=== PATIENT | female | born 1945 | race African-American/Black ===

== ENCOUNTER 2018-05-07 00:56 | Emergency (ER) | payer OTHER, BC ==
[2018-05-07 01:25] VITALS: BP 160/81; PULSE 85; TEMP 98.3; BMI 35.9
[2018-05-07] MEDS ORDERED: FAMOTIDINE 20 MG/50 ML IVPB 20 MG/50 ML MG IVPB ONE ×2 (03:01→03:09)
[2018-05-07] MEDS ORDERED: methylPREDNISolone NA SUCC 125 MG/2 ML VIAL IVPB ONE (03:01)
--- NOTE | 2018-05-07 03:01 | PDOC ---
History of Present Illness - General Chief Complaint: Allergic Reaction Stated Complaint: ALLERGIC REACTION Time Seen by Provider: 05/07/18 02:20 History Source: Patient Exam Limitations: No Limitations - History of Present Illness Initial Comments: 05/07/18 02:59 Best Contact: PCP:juana name Pmhx: NIDDM, HTN Pshx: 2013: R THR, 2 lumbar laminectomy, spinal stimulator Allergies: Asa/Palpitations, IV dye swelling FH:0 Social Hx: Cigarettes/ 0 Alcohol/ 0 Drugs/0 Past History - Past Medical History Allergies/Adverse Reactions: Allergies Allergy/AdvReac Type Severity Reaction Status Date / Time iodine Allergy Severe Swelling Verified 10/25/17 14:11 aspirin AdvReac palpitation Verified 10/25/17 14:11 s contrast Allergy Severe Swelling Uncoded 10/25/17 14:11 Home Medications: Ambulatory Orders Amlodipine Besylate [Norvasc -] 5 mg PO DAILY 10/25/17 Brimonidine Tartrate/Timolol [Combigan 0.2%-0.5% Eye Drops] 5 ml OP ASDIR Carvedilol [Coreg -] 6.25 mg PO BID 10/25/17 Dexlansoprazole [Dexilant] 60 mg PO DAILY 10/25/17 Furosemide [Lasix] 20 mg PO DAILY 10/25/17 Gabapentin [Gralise] 300 mg PO BID 10/25/17 Metformin HCl [Metformin HCl ER] 500 mg PO BID 10/25/17 Multivit-Min/Iron/Folic/Lutein [Centrum Silver Women Tablet] 1 each PO HS Sitagliptin Phosphate [Januvia] 50 mg PO DAILY 10/25/17 Tramadol HCl [Ultram] 50 mg PO PRN PRN 10/25/17 Valsartan/Hydrochlorothiazide [Valsartan-Hctz 320-12.5 mg Tab] 1 each PO DAILY 10/25/17 Cephalexin Monohydrate [Keflex -] 500 mg PO BID 7 Days #14 capsule 10/29/17 COPD: No DVT: No Diabetes: Yes GI Disorders: Yes (GERD) HTN: Yes - Surgical History Neurologic Surgery: Yes (laminectomy) Orthopedic Surgery: Yes (left cyst wrist) - Immunization History Immunization Up to Date: Yes - Suicide/Smoking/Psychosocial Hx Smoking History: Never smoked Have you smoked in the past 12 months: No Information on smoking cessation initiated: No Hx Alcohol Use: No Drug/Substance Use Hx: No Substance Use Type: None Hx Substance Use Treatment: No *Physical Exam - Vital Signs Last Vital Signs Temp Pulse Resp BP Pulse Ox 98.3 F 85 20 160/81 95 05/07/18 00:58 05/07/18 00:58 05/07/18 00:58 05/07/18 00:58 05/07/18 00:58 Moderate Sedation - Procedure Monitoring Vital Signs: Procedure Monitoring Vital Signs Temperature 98.3 F 05/07/18 00:58 Pulse Rate 85 05/07/18 00:58 Respiratory Rate 20 05/07/18 00:58 Blood Pressure 160/81 05/07/18 00:58 O2 Sat by Pulse Oximetry (%) 95 05/07/18 00:58 *DC/Admit/Observation/Transfer - Referrals Referrals: Jose Ward MD, [Primary Care Provider] - - Patient Instructions - Post Discharge Activity
[2018-05-07] MEDS ORDERED: methylPREDNISolone NA SUCC 125 MG/2 ML VIAL ONE (03:09)
== END 2018-05-07 04:45 | disposition home or self-care (01) ==
LOC: JER 00:56
PROC: 3E033GC Introduction of Other Therapeutic Substance into Peripheral Vein, Percutaneous Approach (ICD-10-PCS; principal; 2018-05-07)
PROC: 3E033GC Introduction of Other Therapeutic Substance into Peripheral Vein, Percutaneous Approach (ICD-10-PCS; 2018-05-07)
PROC: 3E0333Z Introduction of Anti-inflammatory into Peripheral Vein, Percutaneous Approach (ICD-10-PCS; 2018-05-07)
DX: T78.40XA Allergy, unspecified, initial encounter (principal); R22.0 Localized swelling, mass and lump, head; I10 Essential (primary) hypertension; E11.9 Type 2 diabetes mellitus without complications; Z79.84 Long term (current) use of oral hypoglycemic drugs; Z91.013 Allergy to seafood; Z88.6 Allergy status to analgesic agent; Z91.041 Radiographic dye allergy status
CPT/HCPCS: 96365; 96375; 99281-25

== ENCOUNTER → 2018-07-10 | Day surgery (SDC) | payer OTHER, BC ==
--- NOTE | 2018-07-13 16:24 | PATH ---
Cytology Non-Gynecological Report Patient Name: ALEJANDRINA MAS Med. Rec. #: [id number] /Age/Gender: 1945 (Age: 73) / F Account: [id number] Location: RADIOLOGY INTER Taken: 07/10/2018 Received: 07/10/2018 Reported: 07/13/2018 Physicians: Malcom Tristan M.D. Specimen(s) Received THYROID FNA RIGHT LOBE Clinical History Right lobe, 3.93 x 2.85 x 3.06 cm Final Diagnosis THYROID, RIGHT LOBE, FINE NEEDLE ASPIRATION: SATISFACTORY FOR EVALUATION. BETHESDA V: SUSPICIOUS FOR PAPILLARY THYROID CARCINOMA. ATYPICAL FOLLICULAR CELLS WITH NUCLEAR ENLARGEMENT, INTRANUCLEAR CLEARING, AND NUCLEAR GROOVES DISPERSED CELLULAR FRAGMENTS, SYNCYTIAL AGGREGATES, AND FEW MICROFOLLICLES. Comment: Findings discussed with Dr. Pagan. Electronically Signed Donna Calloway M.D. Gross Description Received are eight direct smears, four of which are air-dried and Diff-Quik stained, and four of which are alcohol fixed and Pap stained. Also received is 20 ml of bloody formalin from which one cellblock is prepared.
== END | disposition home or self-care (01) ==
LOC: JRADIR 09:37
PROVIDERS: ATTEND Internal Medicine Endocrinology, Diabetes & Metabolism
PROC: 0G9K3ZX Drainage of Thyroid Gland, Percutaneous Approach, Diagnostic (ICD-10-PCS; principal; 2018-07-10)
DX: E04.1 Nontoxic single thyroid nodule (principal)
CPT/HCPCS: 76942; 88173; 88305-TC

== ENCOUNTER 2020-02-20 16:17 | Emergency (ER) | payer OTHER, BC ==
[2020-02-20 17:13] VITALS: TEMP 98.8; BMI 36.8
[2020-02-20] MEDS ORDERED: BAMLANIVIMAB 700 MG in SODIUM CHLORIDE 180 ML IVPB ONE (17:21)
[2020-02-20 18:00] LABS: BASO % 0.4 % (0-2.0); EOS % 0.1 % (0-4.5); HEMATOCRIT 36.4 % (32.4-45.2); HEMOGLOBIN 11.7 GM/dL (10.7-15.3); LYMPH % 27.4 % (8-40); MCH 27.5 pg (25.7-33.7); MCHC 32.2 g/dl (32.0-36.0); MEAN CELL VOLUME 85.3 fl (80-96); MEAN PLT VOLUME 6.9 fl (7.5-11.1); MONO % 15.1 % (3.8-10.2); PLATELET COUNT 320 K/MM3 (134-434); RBC 4.27 M/mm3 (3.60-5.2); RDW 14.9 % (11.6-15.6); WHITE BLOOD COUNT 6.3 K/mm3 (4.0-10.0)
[2020-02-20 18:23] LABS: ALBUMIN 3.5 g/dl (3.4-5.0); BLOOD UREA NITROGEN 24.4 mg/dL (7-18); CALCIUM 8.9 mg/dL (8.5-10.1)
[2020-02-20 18:26] LABS: CREATININE 1.3 mg/dL (0.55-1.3)
[2020-02-20 18:28] LABS: BILIRUBIN,TOTAL 0.4 mg/dL (0.2-1); TOT PROT 7.9 g/dl (6.4-8.2)
[2020-02-20 21:35] VITALS: BP 140/78; PULSE 78
== END 2020-02-20 22:15 | disposition home or self-care (01) ==
LOC: JER 16:17
PROC: 3E033NZ Introduction of Analgesics, Hypnotics, Sedatives into Peripheral Vein, Percutaneous Approach (ICD-10-PCS; principal; 2020-02-20)
DX: Z11.59 Encounter for screening for other viral diseases (principal)
CPT/HCPCS: 36415; 80053; 85025; 96365; 99284-25; M0239; Q0239

== ENCOUNTER 2020-11-19 16:15 | Emergency (ER) | payer OTHER, BC ==
[2020-11-19 16:46] VITALS: BP 129/70; PULSE 86; TEMP 99.2; BMI 35.9
[2020-11-19] MEDS ORDERED: ACETAMINOPHEN 325 MG TABLET (FP) PO ONE (17:11)
== END 2020-11-19 17:31 | disposition home or self-care (01) ==
LOC: FER 16:15
DX: S43.402A Unspecified sprain of left shoulder joint, initial encounter (principal); X50.0XXA Overexertion from strenuous movement or load, initial encounter
CPT/HCPCS: 73030-TC-LT-FY; 99283-25

== ENCOUNTER 2021-10-12 17:46 | Emergency (ER) | payer BC, OTHER ==
[2021-10-12 18:06] VITALS: BP 168/80; PULSE 85; RESP 18; TEMP 99; BMI 37.4
[2021-10-12] MEDS ORDERED: ACETAMINOPHEN 500 MG TABLET (FP) PO ONE (19:01)
[2021-10-12] MEDS ORDERED: ACETAMINOPHEN 500 MG TABLET (FP) ONE (19:15)
== END 2021-10-12 20:03 | disposition home or self-care (01) ==
LOC: JER 17:46 → JERFT 17:46
DX: M79.672 Pain in left foot (principal)
CPT/HCPCS: 73630-TC-LT; 99284-25